=== PATIENT | male | born 1995 | race Two or more races ===

== ENCOUNTER 2016-04-19 22:22 | Emergency (ER) | payer OTHER ==
--- NOTE | ~2016-04-19 | ER ---
[facility] AGE[facility] 20 Y [address] ROOM: [place] [address] LOCATION: [facility] ADMIT DATE: 04/19/2016 ER/Outpatient Report DISCHARGE DATE: FAMILY PHYSICIAN: Trevor Soares MD ATTENDING PHYSICIAN: Nikolay Azar Admission date and time documented on the medical record. I saw the patient at 2245 hours. CHIEF COMPLAINT: Cough, fever, chills, body aches, lethargy. HISTORY OF PRESENT ILLNESS: This patient is a 20-year-old male, who has been ill for the past 2 to 3 days. He has had intermittent fever, chills, and sweats, hot and cold at times. He has a nonproductive cough. He has some nausea, but no vomiting, diarrhea, urinary frequency, urgency, or dysuria. Has some dizziness, lightheadedness, tiredness, lethargy, malaise, myalgias, and arthralgias. He has a generalized headache. Some mild shortness of breath but no chest pain. No syncope or near syncope. He is on Augmentin for this respiratory infection that started yesterday morning. He has a little bit of loose stool from the Augmentin. No abdominal pain. No back pain. No joint or muscle swelling, redness, or pain. No skin eruptions or rash. No history of endocrine problems, neuro changes, or psych issues. HOME MEDICATIONS: See attached medication list. ALLERGIES: NONE. SOCIAL HISTORY: Occasional alcohol, nonsmoker. SIGNIFICANT PAST MEDICAL HISTORY: Negative. OPERATIONS: None. REVIEW OF SYSTEMS: All systems reviewed by me are negative with the exception of those discussed in the history of present illness. PHYSICAL EXAMINATION: [facility] AGE: 20 Y [address] ROOM: [place] [address] LOCATION: [facility] ADMIT DATE: 04/19/2016 ER/Outpatient Report DISCHARGE DATE: FAMILY PHYSICIAN: Trevor Soares MD ATTENDING PHYSICIAN: Nikolay Azar VITAL SIGNS: Temperature 98.5, pulse 75, respirations 20, blood pressure 136/69, O2 saturation on room air is 97%. HEENT: Head: Normocephalic. Eyes, clear. Ears, clear TMs bilaterally. Nose: Congested, throat clear. Mucous membranes moist. NECK: Negative. SPINE: Negative. LUNGS: Clear. Coarse cough. HEART: Regular. Pulses are palpable. ABDOMEN: Soft, nontender. Good bowel tones. No organomegaly or abnormal mass palpable. No CVA tenderness. EXTREMITIES: Intact. NEUROVASCULAR: Intact. SKIN: Clear. LABORATORY DATA AND X-RAYS: Chest x-ray showed no acute infiltrate. We will review x-ray with radiologist. Laboratory: Monospot was negative. White count was 16,300, 81 segs, 11 lymphs, 7 monos, 1 eo, hemoglobin was 16.1 with hematocrit 48.5, platelet count 247,000. Influenza A and B were both negative. CMS was normal except for a slightly elevated glucose 107. CRP was 3.76. IMPRESSION: Bronchial respiratory infection with congestion, cough, intermittent fever. The patient also has generalized malaise, myalgias, lethargy. PLAN: The patient dismissed home. Observation. Activity as tolerated. The patient was given Rocephin 1 g IM in the emergency room. Discharged home. Fluids and diet as tolerated. Continue present home medications and care. Tylenol or ibuprofen 2 every 4 to 6 hours as needed for fever. Phenergan expectorant with codeine cough medication as needed for cough. Follow up with personal physician as needed. Discussion ensued with the patient concerning my findings and recommendations, he understands. MD AGATA CHASE/modl /[id number] d: 04/20/16 0220 t: 04/20/16 1804, OUTPATIENT REPORT
[2016-04-19 23:05] LABS: BASOPHIL % 0.2 %; EOSINOPHIL # 0.2 K/uL (0.0-0.5); EOSINOPHIL % 1.1 %; HEMATOCRIT 48.5 % (37.0-53.0); HEMOGLOBIN 16.1 g/dL (12.0-17.0); IMMATURE GRANULOCYTE # 0.1 K/uL (0.0-0.3); IMMATURE GRANULOCYTE % 0.3 %; LYMPHOCYTE # 1.8 K/uL (0.8-4.0); MCHC 33.2 gm/dL (32.0-36.5); MCV 84.5 fl (83.0-98.0); MONOCYTE # 1.1 K/uL (0.0-1.0); MONOCYTE % 6.6 %; MPV 9.6 fl (9.4-12.4); NEUTROPHIL # (ANC) 13.2 K/uL (1.4-9.0); NEUTROPHIL % 80.8 %; NRBC % 0 /100WBC (0-0.00); PLATELET COUNT 247 K/uL (150-450); RBC 5.74 M/uL (4.00-6.00); RDW-CV 12.8 % (11.9-14.6); WBC 16.3 K/uL (4.0-11.0)
[2016-04-19 23:20] LABS: ALBUMIN 3.6 gm/dL (3.5-5.0); ALK PHOS 76 IU/L (33-138); ALT 35 IU/L (12-78); ANION GAP 13.2 (10.0-19.0); AST 11 IU/L (10-40); BLOOD UREA NITROGEN 13 mg/dL (6-24); CALCIUM 8.6 mg/dL (8.5-10.5); CHLORIDE 108 mMol/L (96-110); CO2 24 mMol/L (22-32); CREATININE 1.1 mg/dL (0.6-1.3); ESTIMATED GFR (MDRD EQUATION) > 60; POTASSIUM 4.2 mMol/L (3.7-5.1); SODIUM 141 mMol/L (135-145); TOTAL BILIRUBIN 0.2 mg/dL (0.0-1.5); TOTAL PROTEIN 7.2 g/dL (6.0-8.4)
== END 2016-04-20 00:28 | disposition disaster alternative care site (69) ==
LOC: GMED 22:22
PROVIDERS: Emergency Medicine
DX: J40 Bronchitis, not specified as acute or chronic (principal); M79.1 Myalgia; R53.81 Other malaise; R53.83 Other fatigue
CPT/HCPCS: J0696

== ENCOUNTER 2016-08-04 22:19 | Emergency (ER) | payer OTHER ==
--- NOTE | ~2016-08-04 | ER ---
[facility] 20 Y [address] ROOM: [place] [address] LOCATION: [facility] ADMIT DATE: 08/04/2016 ER/Outpatient Report DISCHARGE DATE: 08/04/2016 FAMILY PHYSICIAN: Rojas Felton MD ATTENDING PHYSICIAN: Nikolay Azar Time of Arrival: 2223 hours. Time of Exam: 2230 hours. CHIEF COMPLAINT: Finger laceration. HISTORY OF PRESENT ILLNESS: The patient states approximately 9 o'clock this morning he was cutting a lemon at home when he cut his left middle finger. He has a flap-type cut to the finger pad. No involvement of the nail. He states he attempted to glue it at home this morning, but it did not last. He is concerned because it continues to bleed and is tender. ALLERGIES: NO KNOWN ALLERGIES. CURRENT MEDICATIONS: None. PAST MEDICAL HISTORY: Benign. PAST SURGICAL HISTORY: Negative surgeries. SOCIAL HISTORY: Denies use of tobacco or drugs. Drinks alcohol on an occasional basis. Unsure when his last tetanus shot was. REVIEW OF SYSTEMS: Negative other than those mentioned in the HPI. PHYSICAL EXAMINATION: VITAL SIGNS: He weighed 99.1 kg. Blood pressure is 178/80, pulse is 70, respirations are 16, temperature of 98.7, and O2 saturation was 96% on room air. GENERAL: He is awake, alert, and oriented x4. SKIN: [place], warm, and dry. RESPIRATIONS: Even and nonlabored. Lung sounds are clear throughout. [facility] 20 Y [address] ROOM: [place] [address] LOCATION: [facility] ADMIT DATE: 08/04/2016 ER/Outpatient Report DISCHARGE DATE: 08/04/2016 FAMILY PHYSICIAN: Rojas Felton MD ATTENDING PHYSICIAN: Nikolay Azar HEART: Regular rate and rhythm. EMERGENCY ROOM COURSE: The patient has approximately 1.5 cm flap cut to the left middle finger. No involvement of the nail. It was cleansed well with saline. It is gaping open. Discussed with the patient by putting some stitches in it to help keep it closed and heal faster. He agrees with plan of care. The finger was anesthetized with 1% plain Xylocaine, cleansed well with Betadine and saline, closed with 4-0 Ethilon x2 stitches. A finger dressing was applied. Afterwards, the patient had good sensation to the tip of the finger before and after the suturing. Good movement of the finger. Tetanus was updated with a Tdap. IMPRESSION: Finger laceration. PLAN: Home, rest. Keep it clean and dry. Keep it covered while at work, otherwise, open to air. Follow up with his primary provider if symptoms of infection; otherwise, suture removal in 7-10 days. He verbalized understanding. TROY SHORE APRN FOR MD AMRITA CHASE/julee /[id number] d: 08/05/16 0135 t: 08/07/16 1228, OUTPATIENT REPORT
== END 2016-08-04 22:50 | disposition disaster alternative care site (69) ==
LOC: GACC 22:19
PROC: 0HQGXZZ Repair Left Hand Skin, External Approach (ICD-10-PCS; principal; 2016-08-04)
DX: S61.213A Laceration without foreign body of left middle finger without damage to nail, initial encounter (principal); W26.9XXA Contact with unspecified sharp object(s), initial encounter; Y93.89 Activity, other specified; Y92.009 Unspecified place in unspecified non-institutional (private) residence as the place of occurrence of the external cause